=== PATIENT | female | born 1970 | race Two or more races ===

== ENCOUNTER 2017-11-25 15:03 | Emergency (ER) | payer OTHER ==
[~2017-11-25] VITALS: Ht 154.9 cm; Wt 49.9 kg
[2017-11-25] MEDS ORDERED: PREMARIN0.45 MG (15:10)
[2017-11-25] MEDS ORDERED: TEMAZEPAM30 MG (15:11)
[2017-11-25] MEDS ORDERED: INDOCIN25 MG (15:11)
== END 2017-11-25 19:23 | disposition home or self-care (01) ==
LOC: ER 15:03
DX: J32.0 Chronic maxillary sinusitis (principal); H65.192 Other acute nonsuppurative otitis media, left ear

== ENCOUNTER → 2020-07-18 | Emergency (ER) | payer OTHER ==
[~2020-07-18] VITALS: Ht 157.5 cm; Wt 61.2 kg
[~2020-07-18] MED LIST: AMITRIPTYLINE100 MG; DILTIAZEM ER240 M1; INDOCIN25 MG; METOCLOPRAMIDE10 MG PO; MIRALAX510 GM PO; PREMARIN0.45 MG; TEMAZEPAM30 MG; TREXIMET 85-501 EACH
== END | disposition home or self-care (01) ==
LOC: ER 10:18
DX: K59.09 Other constipation (principal); Z03.818 Encounter for observation for suspected exposure to other biological agents ruled out